=== PATIENT | female | born 1980 | race Caucasian/White ===

== ENCOUNTER 2020-05-07 07:54 | Emergency (ER) | payer SELFPAY ==
[2020-05-07 07:59] VITALS: BP 150/94
[2020-05-07] MEDS ORDERED: CEFTRIAXONE 1 GM/D5W RTU 1 GM/50 ML RTUPB IV ONE (08:55)
[2020-05-07] MEDS ORDERED: LIDOCAINE 2% JELLY 5 ML TUBE TOP ONE (08:56)
--- NOTE | 2020-05-07 08:57 | ER Document Report ---
ED General - General Chief Complaint: Facial Swelling Stated Complaint: FACIAL SWELLING Time Seen by Provider: 05/07/20 08:55 Notes: CHIEF COMPLAINT: Dental soreness, right facial swelling HPI: 39-year-old female presenting for dental soreness to the right upper premolars with onset of facial swelling today. Denies of facial swelling last n ight. Has had dental soreness and discomfort for 2 days. No fever. ROS: See HPI - all other systems were reviewed and are otherwise negative Constitutional: no fever Eyes: no drainage, no blurred vision ENT: no runny nose, no sore throat, positive dental pain Integumentary: Positive facial swelling Allergy: no hives MEDICATIONS: I agree with the patient medications as charted by the RN. ALLERGIES: I agree with the allergies as charted by the RN. PAST MEDICAL HISTORY/PAST SURGICAL HISTORY: Reviewed and agree as charted by RN. SOCIAL HISTORY: Reviewed and agree as charted by RN. FAMILY HISTORY: No significant familial comorbid conditions directly related to patient complaint EXAM: Reviewed vital signs as charted by RN. CONSTITUTIONAL: Alert and oriented and responds appropriately to questions. Well-appearing; well-nourished HEAD: Normocephalic; atraumatic EYES: PERRL; Conjunctivae clear, sclerae non-icteric ENT: normal nose; no rhinorrhea; moist mucous membranes; pharynx without lesions noted, no uvula edema or deviation, no tonsillar hypertrophy, phonation normal. There is soft tissue swelling and edema adjacent to the right upper second premolar with some fluctuance noted laterally. There is soft tissue swelling over the right preseptal region to the level of the inferior right periorbital area NECK: Supple without meningismus; non-tender; no cervical lymphadenopathy, no masses CARD: Capillary refill less than 3 seconds; symmetric distal pulses RESP: Normal chest excursion without splinting or tachypnea ABD/GI: non-distended BACK: The back appears normal EXT: Normal ROM in all joints; no cyanosis, no effusions, no edema SKIN: Normal color for age and race; warm; dry; good turgor NEURO: Moves all extremities equally; Motor and sensory function intact PSYCH: The patient's mood and manner are appropriate. Grooming and personal hygiene are appropriate. MDM: 39-year-old female with facial cellulitis from a dental abscess. The abscess does appear to be slightly fluctuant laterally I will plan to jessica the area with a scalpel to open and drain the area. Will give patient a dose of IV antibiotics here she will likely need to start on oral antibiotics and have dental follow-up - Related Data Allergies/Adverse Reactions: No Known Allergies Allergy (Verified 05/07/20 08:45) Past Medical History - Social History Smoking Status: Current Every Day Smoker Chew tobacco use (# tins/day): No Frequency of alcohol use: Occasional Drug Abuse: None Family History: Reviewed & Not Pertinent Past Surgical History: Reports: Hx Tubal Ligation Physical Exam - Vital signs Vitals: Temp Pulse Resp BP Pulse Ox 98.6 F 96 16 150/94 H 100 05/07/20 07:58 05/07/20 07:58 05/07/20 07:58 05/07/20 07:58 05/07/20 07:58 Course - Vital Signs Vital signs: Temp Pulse Resp BP Pulse Ox 98.6 F 96 16 150/94 H 100 05/07/20 07:58 05/07/20 07:58 05/07/20 07:58 05/07/20 07:58 05/07/20 07:58 - Laboratory Result Diagrams: 05/07/20 09:38 05/07/20 09:38 Laboratory results interpreted by me: 05/07/20 09:38 MCV 99 H Lymph % (Auto) 9.9 L Seg Neutrophils % 79.5 H Procedures - Incision and Drainage Right Upper Face Time completed: 10:04 Type: Simple Anesthetic type: 1% Lidocaine, Other - Topical Blade size: 11 Incision Method: Incision made by scalpel Amount/type of drainage: 1 to 2 mL purulent discharge adjacent to the second premolar from the denta Discharge - Discharge Clinical Impression: Dental abscess, Facial cellulitis Condition: Stable Disposition: HOME, SELF-CARE Additional Instructions: 1. Take the medications as prescribed, if you were written antibiotics make sure that you finish them. 2. You need to follow up with a dentist for definitive evaluation and care of your dental problems 3. return to the ED for any facial swelling, fever > 101, difficulty swallowing or opening the mouth. 4. You may attempt to follow up with the [facility] for further care as well as through the dental list provided. 5. you may want to consider a dental discount plan such as [email or web address] to help with costs of dental care as you do not have dental insurance Prescriptions: Amoxicillin 1 tab PO TID #30 tab Ibuprofen [Motrin 600 Mg Tablet] 600 mg PO TID #15 tablet Hydrocodone/Acetaminophen [[place] 5-325 mg Tablet] 1 tab PO Q4 PRN #15 tablet PRN Reason:
[2020-05-07 09:53] LABS: ABSOLUTE LYMPHOCYTES (AUTO) 0.9 10^3/uL (0.5-4.7); ABSOLUTE MONOCYTES (AUTO) 0.9 10^3/uL (0.1-1.4); ABSOLUTE NEUT (AUTO) 7.2 10^3/uL (1.7-8.2); BASOPHILS % (AUTO) 0.5 % (0-2); EOSINOPHILS % (AUTO) 0.5 % (0-6); HEMATOCRIT 44.1 % (36.0-47.0); HEMOGLOBIN 14.9 g/dL (12.0-15.5); LYMPHOCYTES % (AUTO) 9.9 % (13-45); MEAN CORPUSCULAR HEMOGLOBIN 33.3 pg (27.0-33.4); MEAN CORPUSCULAR HGB CONC 33.7 g/dL (32.0-36.0); MEAN CORPUSCULAR VOLUME 99 fl (80-97); MONOCYTES % (AUTO) 9.6 % (3-13); PLATELET COUNT 226 10^3/uL (150-450); RED BLOOD COUNT 4.46 10^6/uL (3.72-5.28); RED CELL DISTRIBUTION WIDTH 13.9 % (11.5-14.0); SEGMENTED NEUTROPHILS % (AUTO) 79.5 % (42-78); TOTAL CELLS COUNTED % (AUTO) 100 %; WHITE BLOOD COUNT 9.1 10^3/uL (4.0-10.5)
[2020-05-07] MEDS ORDERED: HYDROCODONE/ACETAMINOPHEN 5-325 MG TABLET PO ONE (10:02)
[2020-05-07 10:19] LABS: BLOOD UREA NITROGEN 8 mg/dL (7-20); CALCIUM 9.8 mg/dL (8.4-10.2); CARBON DIOXIDE 25 mmol/L (22-30); CHLORIDE 103 mmol/L (98-107); GLUCOSE 96 mg/dL (75-110); POTASSIUM 4.2 mmol/L (3.6-5.0)
[2020-05-07 10:20] LABS: ANION GAP 9 (5-19)
== END 2020-05-07 10:56 | disposition home or self-care (01) ==
LOC: ER 07:54
DX: K04.7 Periapical abscess without sinus (principal); L03.211 Cellulitis of face; K08.9 Disorder of teeth and supporting structures, unspecified; F17.200 Nicotine dependence, unspecified, uncomplicated
CPT/HCPCS: 99284; 96365; 36415; 85025; 80048; 41800; J0696